=== PATIENT | female | born 1935 | race Two or more races ===

== ENCOUNTER 2019-10-04 17:12 | Inpatient (IN) | payer SELFPAY ==
[~2019-10-04] VITALS: Ht 142.2 cm; Wt 42.2 kg
[~2019-10-04 17:12] MED LIST: AML5T PO; ASP81EC PO; ATOR20TA50 PO; PANT40T PO
[2019-10-04 19:03] LABS: Hemoglobin 11.2 g/dL (12.2-16.2); Lymphocytes # (auto) 2.1 10 ^3/uL (0.4-5.4); Monocytes # (auto) 0.6 10 ^3/uL (0-1.3)
[2019-10-04 19:05] LABS: Basophils # (auto) 0 10 ^3/uL (0-0.2); Basophils % (auto) 0.6 % (0.0-2.0); Eosinophils # (auto) 0.5 10 ^3/uL (0-0.8); Eosinophils % (auto) 6.8 % (0.0-7.0); Hematocrit 33.1 % (36.0-46.0); Lymphocytes % (auto) 27.1 % (10.0-50.0); Mean Corpuscular Hemoglobin 34.7 pg (28.0-32.0); Mean Corpuscular Volume 102.2 fL (80.0-100.0); Monocytes % (auto) 7.9 % (0.0-12.0); Neutrophils # (auto) 4.4 10 ^3/uL (1.6-8.6); Neutrophils % (auto) 57.6 % (37.0-80.0); Platelet Count (auto) 265 10^3/uL (140-450); Red Blood Cells 3.23 10^6/uL (4.0-5.20); Red Cell Distribution Width 13.2 % (11.8-14.3); White Blood Cell 7.6 10^3/uL (4.4-10.8)
[2019-10-04 19:06] LABS: Albumin 2.7 g/dL (3.4-5.0); Anion Gap 6 (5-15); Blood Urea Nitrogen 42 mg/dL (7-18); Carbon Dioxide 21 mmol/L (21-32); Chloride 113 mmol/L (98-107); Glucose 175 mg/dL (74-106); Potassium 4.7 mmol/L (3.5-5.1); Sodium 140 mmol/L (136-145)
[2019-10-04 19:11] LABS: Alanine Aminotransferase 19 U/L (13-56); Alkaline Phosphatase 151 U/L (45-117); Aspartate Aminotransferase 21 U/L (15-37); BUN/Creatinine Ratio 14.9; Bilirubin, Total 0.2 mg/dL (0.2-1.0); GFR African American 21 mL/min; GFR Non-African American 17 mL/min; Total Protein 6.4 g/dL (6.4-8.2)
[2019-10-04] MEDS ORDERED: cloNIDine HCL 0.1 MG TAB PO ONE (20:00)
[2019-10-04] MEDS ORDERED: ONDANSETRON HCL 4 MG/2 ML VIAL IV PRN (21:30)
[2019-10-04] MEDS ORDERED: SODIUM CHLORIDE 0.9% 500 ML IV ONE (21:30)
[2019-10-04] MEDS ORDERED: ACETAMINOPHEN 325 MG TAB PO PRN (21:30)
[2019-10-04] MEDS ORDERED: cloNIDine HCL 0.1 MG TAB PO PRN (21:30)
[2019-10-04] MEDS ORDERED: TEMAZEPAM 15 MG CAP PO PRN (21:30)
[2019-10-04] MEDS: SODIUM CHLORIDE 0.9% 1,000 ML IV SCH (22:28)
[2019-10-04] MEDS: ATORVASTATIN 20 MG TAB PO SCH (22:29)
[2019-10-04 23:00] VITALS: BP 135/56
[2019-10-05] VITALS (7 sets, daily range): BP systolic 124–199; BP diastolic 47–84
[2019-10-05] MEDS ORDERED: PNEUMOCOCCAL VACC POLYS 25 MCG/0.5 ML VIAL IM ONE (00:15)
[2019-10-05] MEDS ORDERED: INFLUENZA QUAD 2019-2020 0.5ml SYRG IM ONE (00:15)
[2019-10-05 05:11] LABS: Basophils # (auto) 0 10 ^3/uL (0-0.2); Basophils % (auto) 0.7 % (0.0-2.0); Eosinophils # (auto) 0.4 10 ^3/uL (0-0.8); Eosinophils % (auto) 6.1 % (0.0-7.0); Hemoglobin 10.6 g/dL (12.2-16.2); Lymphocytes # (auto) 2.4 10 ^3/uL (0.4-5.4); Lymphocytes % (auto) 34.1 % (10.0-50.0); Mean Corpuscular Hemoglobin 33.7 pg (28.0-32.0); Mean Corpuscular Hgb Conc. 33.2 g/dL (32.0-36.0); Mean Corpuscular Volume 101.4 fL (80.0-100.0); Monocytes # (auto) 0.6 10 ^3/uL (0-1.3); Monocytes % (auto) 8.4 % (0.0-12.0); Neutrophils # (auto) 3.5 10 ^3/uL (1.6-8.6); Neutrophils % (auto) 50.7 % (37.0-80.0); Platelet Count (auto) 231 10^3/uL (140-450); Red Blood Cells 3.16 10^6/uL (4.0-5.20); Red Cell Distribution Width 12.7 % (11.8-14.3); White Blood Cell 6.9 10^3/uL (4.4-10.8)
[2019-10-05 05:31] LABS: Potassium 4.8 mmol/L (3.5-5.1)
[2019-10-05 05:36] LABS: BUN/Creatinine Ratio 17.8; Calcium 7.9 mg/dL (8.5-10.1)
[2019-10-05] MEDS ORDERED: PANTOPRAZOLE 40 MG TAB PO SCH (10:00)
[2019-10-05] MEDS: PANTOPRAZOLE 40 MG TAB PO SCH (10:19)
[2019-10-05] MEDS: amLODIPine BESYLATE 5 MG TAB PO SCH (10:19)
[2019-10-05] MEDS ORDERED: MECL25TA18 PO (13:42)
[2019-10-05] MEDS ORDERED: MECLIZINE HCL 25 MG TAB PO PRN (14:00)
[2019-10-05] MEDS ORDERED: cloNIDine HCL 0.1 MG TAB PO PRN (14:00)
[2019-10-05] MEDS: SODIUM CHLORIDE 0.9% 1,000 ML IV SCH (14:10)
[2019-10-05 17:46] LABS: Urine Bacteria MANY /hpf (None Seen); Urine Blood 2+ /uL (Negative); Urine Specific Gravity 1.014 (1.001-1.035); Urine WBC 41 /hpf (0 - 5)
[2019-10-05] MEDS: Glucerna Carbsteady SHAKE Vanilla 8oz PO SCH (18:18)
[2019-10-05] MEDS: ATORVASTATIN 20 MG TAB PO SCH (21:09)
[2019-10-06 05:00] VITALS: BP 158/68
[2019-10-06 05:22] LABS: Basophils # (auto) 0 10 ^3/uL (0-0.2); Basophils % (auto) 0.5 % (0.0-2.0); Eosinophils # (auto) 0.5 10 ^3/uL (0-0.8); Eosinophils % (auto) 7.2 % (0.0-7.0); Hematocrit 32.2 % (36.0-46.0); Hemoglobin 10.8 g/dL (12.2-16.2); Lymphocytes # (auto) 1.9 10 ^3/uL (0.4-5.4); Lymphocytes % (auto) 28.4 % (10.0-50.0); Mean Corpuscular Hemoglobin 33.8 pg (28.0-32.0); Mean Corpuscular Hgb Conc. 33.5 g/dL (32.0-36.0); Mean Corpuscular Volume 100.8 fL (80.0-100.0); Monocytes # (auto) 0.4 10 ^3/uL (0-1.3); Monocytes % (auto) 6.6 % (0.0-12.0); Neutrophils # (auto) 3.9 10 ^3/uL (1.6-8.6); Neutrophils % (auto) 57.3 % (37.0-80.0); Platelet Count (auto) 237 10^3/uL (140-450); Red Cell Distribution Width 12.9 % (11.8-14.3); White Blood Cell 6.8 10^3/uL (4.4-10.8)
[2019-10-06 05:49] LABS: Calcium 7.9 mg/dL (8.5-10.1); Potassium 4.8 mmol/L (3.5-5.1)
[2019-10-06 05:51] LABS: BUN/Creatinine Ratio 16.7
[2019-10-06] MEDS: SODIUM CHLORIDE 0.9% 1,000 ML IV SCH (06:55)
[2019-10-06 09:20] VITALS: BP 148/70
[2019-10-06] MEDS: amLODIPine BESYLATE 5 MG TAB PO SCH (10:31)
[2019-10-06] MEDS: Glucerna Carbsteady SHAKE Vanilla 8oz PO SCH ×3 (10:31→18:17)
[2019-10-06] MEDS: PANTOPRAZOLE 40 MG TAB PO SCH (10:31)
[2019-10-06 12:49] VITALS: BP 156/73
[2019-10-06] MEDS ORDERED: cefTRIAXone 1GM/50ML D5W 50 ML IV ONE (13:45)
[2019-10-06] MEDS: cloNIDine HCL 0.1 MG TAB PO SCH ×2 (13:51→21:59)
[2019-10-06 17:33] VITALS: BP 149/66
[2019-10-06 20:00] VITALS: BP 200/71
[2019-10-06] MEDS: ATORVASTATIN 20 MG TAB PO SCH (21:58)
[2019-10-06 22:00] VITALS: BP 200/71
[2019-10-07] VITALS (7 sets, daily range): BP systolic 120–159; BP diastolic 38–67
[2019-10-07 06:11] LABS: Calcium 7.9 mg/dL (8.5-10.1); Potassium 4.8 mmol/L (3.5-5.1)
[2019-10-07 06:13] LABS: BUN/Creatinine Ratio 19.5
[2019-10-07 09:50] LABS: Magnesium 1.8 mg/dL (1.6-2.6); Phosphorus 3.8 mg/dL (2.5-4.90)
[2019-10-07] MEDS: cloNIDine HCL 0.1 MG TAB PO SCH ×2 (09:52→22:00)
[2019-10-07] MEDS: cefTRIAXone 1GM/50ML D5W 50 ML IV SCH (09:52)
[2019-10-07] MEDS: PANTOPRAZOLE 40 MG TAB PO SCH (09:53)
[2019-10-07] MEDS: amLODIPine BESYLATE 5 MG TAB PO SCH (09:53)
[2019-10-07] MEDS: Glucerna Carbsteady SHAKE Vanilla 8oz PO SCH ×3 (09:53→18:42)
[2019-10-07] MEDS: SODIUM CHLORIDE 0.9% 1,000 ML IV SCH (11:17)
[2019-10-07 14:39] LABS: Protein, Urine 257.7 mg/dL (0.0-11.9)
[2019-10-07] MEDS: ATORVASTATIN 20 MG TAB PO SCH (22:09)
[2019-10-08] VITALS (7 sets, daily range): BP systolic 115–146; BP diastolic 47–69
[2019-10-08] MEDS: SODIUM CHLORIDE 0.9% 1,000 ML IV SCH (06:49)
[2019-10-08 07:58] LABS: Eosinophils # (auto) 0.5 10 ^3/uL (0-0.8); Monocytes # (auto) 0.6 10 ^3/uL (0-1.3); Platelet Count (auto) 219 10^3/uL (140-450); Red Blood Cells 2.84 10^6/uL (4.0-5.20); Red Cell Distribution Width 12.4 % (11.8-14.3)
[2019-10-08 08:00] LABS: Basophils # (auto) 0 10 ^3/uL (0-0.2); Basophils % (auto) 0.5 % (0.0-2.0); Hematocrit 28.5 % (36.0-46.0); Hemoglobin 9.7 g/dL (12.2-16.2); Lymphocytes % (auto) 25.5 % (10.0-50.0); Mean Corpuscular Hemoglobin 34.1 pg (28.0-32.0); Mean Corpuscular Volume 100.3 fL (80.0-100.0); Monocytes % (auto) 7.4 % (0.0-12.0); Neutrophils # (auto) 4.8 10 ^3/uL (1.6-8.6); Neutrophils % (auto) 60.6 % (37.0-80.0); Nucleated Red Blood Cells % 0.1 %; White Blood Cell 7.9 10^3/uL (4.4-10.8)
[2019-10-08 08:17] LABS: BUN/Creatinine Ratio 19.5; Calcium 7.9 mg/dL (8.5-10.1); Potassium 5.1 mmol/L (3.5-5.1)
[2019-10-08] MEDS: cefTRIAXone 1GM/50ML D5W 50 ML IV SCH (09:13)
[2019-10-08] MEDS: cloNIDine HCL 0.1 MG TAB PO SCH ×2 (09:13→21:25)
[2019-10-08] MEDS: Glucerna Carbsteady SHAKE Vanilla 8oz PO SCH ×3 (09:13→17:24)
[2019-10-08] MEDS: PANTOPRAZOLE 40 MG TAB PO SCH (09:14)
[2019-10-08] MEDS: amLODIPine BESYLATE 5 MG TAB PO SCH (09:14)
[2019-10-08] MEDS ORDERED: FUROSEMIDE 40 MG/4 ML VIAL IV ONE (10:15)
[2019-10-08] MEDS ORDERED: CHOLECALCIFEROL (VITD3) 1,000IU=25mCg TAB PO ONE (11:15)
[2019-10-08] MEDS: SODIUM BICARBONATE 650 MG TAB PO SCH ×4 (11:28→21:25)
[2019-10-08] MEDS ORDERED: PANTOPRAZOLE 40 MG/10 ML VIAL INJ IV ONE (11:45)
[2019-10-08 13:05] LABS: Basophils # (auto) 0 10 ^3/uL (0-0.2); Eosinophils # (auto) 0.5 10 ^3/uL (0-0.8); Red Cell Distribution Width 12.5 % (11.8-14.3)
[2019-10-08 13:07] LABS: Basophils % (auto) 0.4 % (0.0-2.0); Eosinophils % (auto) 5.5 % (0.0-7.0); Hemoglobin 9.8 g/dL (12.2-16.2); Lymphocytes # (auto) 1.5 10 ^3/uL (0.4-5.4); Lymphocytes % (auto) 17.7 % (10.0-50.0); Mean Corpuscular Hemoglobin 34.3 pg (28.0-32.0); Mean Corpuscular Hgb Conc. 33.8 g/dL (32.0-36.0); Mean Corpuscular Volume 101.4 fL (80.0-100.0); Monocytes # (auto) 0.6 10 ^3/uL (0-1.3); Monocytes % (auto) 6.9 % (0.0-12.0); Neutrophils # (auto) 5.8 10 ^3/uL (1.6-8.6); Neutrophils % (auto) 69.5 % (37.0-80.0); Platelet Count (auto) 218 10^3/uL (140-450); Red Blood Cells 2.86 10^6/uL (4.0-5.20); White Blood Cell 8.3 10^3/uL (4.4-10.8)
[2019-10-08] MEDS: ATORVASTATIN 20 MG TAB PO SCH (21:26)
[2019-10-09 05:00] VITALS: BP 128/54
[2019-10-09 05:34] LABS: Basophils # (auto) 0 10 ^3/uL (0-0.2); Lymphocytes # (auto) 2.1 10 ^3/uL (0.4-5.4); Monocytes # (auto) 0.6 10 ^3/uL (0-1.3); Red Cell Distribution Width 12.3 % (11.8-14.3)
[2019-10-09 05:36] LABS: Basophils % (auto) 0.5 % (0.0-2.0); Eosinophils # (auto) 0.5 10 ^3/uL (0-0.8); Eosinophils % (auto) 6.1 % (0.0-7.0); Hematocrit 28.8 % (36.0-46.0); Hemoglobin 9.9 g/dL (12.2-16.2); Lymphocytes % (auto) 24.4 % (10.0-50.0); Mean Corpuscular Hemoglobin 34.6 pg (28.0-32.0); Mean Corpuscular Hgb Conc. 34.5 g/dL (32.0-36.0); Mean Corpuscular Volume 100.3 fL (80.0-100.0); Monocytes % (auto) 7.4 % (0.0-12.0); Neutrophils # (auto) 5.3 10 ^3/uL (1.6-8.6); Neutrophils % (auto) 61.6 % (37.0-80.0); Platelet Count (auto) 222 10^3/uL (140-450); Red Blood Cells 2.87 10^6/uL (4.0-5.20); White Blood Cell 8.6 10^3/uL (4.4-10.8)
[2019-10-09 05:51] LABS: Calcium 8.2 mg/dL (8.5-10.1); Potassium 5.2 mmol/L (3.5-5.1)
[2019-10-09 05:54] LABS: BUN/Creatinine Ratio 18.4
[2019-10-09] MEDS: SODIUM BICARBONATE 650 MG TAB PO SCH ×4 (05:54→23:57)
[2019-10-09 06:00] VITALS: BP 148/53
[2019-10-09] MEDS: Glucerna Carbsteady SHAKE Vanilla 8oz PO SCH ×3 (08:00→18:00)
[2019-10-09] MEDS: cefTRIAXone 1GM/50ML D5W 50 ML IV SCH (09:16)
[2019-10-09] MEDS: PANTOPRAZOLE 40 MG/10 ML VIAL INJ IV SCH (09:17)
[2019-10-09] MEDS: amLODIPine BESYLATE 5 MG TAB PO SCH (09:17)
[2019-10-09] MEDS: cloNIDine HCL 0.1 MG TAB PO SCH ×2 (09:18→23:58)
[2019-10-09] MEDS: CHOLECALCIFEROL (VITD3) 1,000IU=25mCg TAB PO SCH (09:18)
[2019-10-09] MEDS ORDERED: DEXTROSE (50%) 50ML SYRG IV ONE (09:30)
[2019-10-09] MEDS ORDERED: InsuLIN REG 1unit/0.01ml Soln (100units/ml) IV ONE (09:30)
[2019-10-09] MEDS ORDERED: ALBUTEROL SULF 2.5 MG/0.5ML(0.5%) NEB SOLN NEB ONE (09:30)
[2019-10-09] MEDS ORDERED: SODIUM BICARBONATE 8.4% INJ 50ML SYRINGE IV ONE (09:30)
[2019-10-09 12:29] VITALS: BP 126/53
[2019-10-09] MEDS: SODIUM ZIRCONIUM CYCL 10 GM PAK PO SCH ×2 (14:00→22:00)
[2019-10-09 17:29] VITALS: BP 118/45
[2019-10-09] MEDS: ATORVASTATIN 20 MG TAB PO SCH (23:57)
[2019-10-10] MEDS: SODIUM ZIRCONIUM CYCL 10 GM PAK PO SCH (05:25)
[2019-10-10 05:42] LABS: Basophils # (auto) 0 10 ^3/uL (0-0.2); Basophils % (auto) 0.3 % (0.0-2.0); Eosinophils # (auto) 0.3 10 ^3/uL (0-0.8); Lymphocytes # (auto) 2.3 10 ^3/uL (0.4-5.4); Lymphocytes % (auto) 24.1 % (10.0-50.0); Monocytes # (auto) 0.9 10 ^3/uL (0-1.3); Monocytes % (auto) 9.5 % (0.0-12.0); Neutrophils # (auto) 5.9 10 ^3/uL (1.6-8.6); Nucleated Red Blood Cells % 0.1 %; White Blood Cell 9.4 10^3/uL (4.4-10.8)
[2019-10-10 05:44] LABS: Eosinophils % (auto) 3.1 % (0.0-7.0); Hematocrit 25.2 % (36.0-46.0); Hemoglobin 8.6 g/dL (12.2-16.2); Mean Corpuscular Hemoglobin 34.1 pg (28.0-32.0); Mean Corpuscular Hgb Conc. 34.1 g/dL (32.0-36.0); Platelet Count (auto) 212 10^3/uL (140-450); Red Blood Cells 2.52 10^6/uL (4.0-5.20); Red Cell Distribution Width 12.6 % (11.8-14.3)
[2019-10-10 05:47] VITALS: BP 124/46
[2019-10-10 06:03] LABS: BUN/Creatinine Ratio 16.9; Calcium 7.9 mg/dL (8.5-10.1)
[2019-10-10] MEDS: SODIUM BICARBONATE 650 MG TAB PO SCH ×2 (06:33→11:40)
[2019-10-10] MEDS: Glucerna Carbsteady SHAKE Vanilla 8oz PO SCH ×2 (08:00→11:40)
[2019-10-10 08:52] VITALS: BP 120/47
[2019-10-10] MEDS: PANTOPRAZOLE 40 MG/10 ML VIAL INJ IV SCH (09:05)
[2019-10-10] MEDS: cefTRIAXone 1GM/50ML D5W 50 ML IV SCH (09:05)
[2019-10-10] MEDS: cloNIDine HCL 0.1 MG TAB PO SCH (09:05)
[2019-10-10] MEDS: CHOLECALCIFEROL (VITD3) 1,000IU=25mCg TAB PO SCH (09:06)
[2019-10-10] MEDS: amLODIPine BESYLATE 5 MG TAB PO SCH (09:06)
[2019-10-10 13:00] VITALS: BP 104/42
== END 2019-10-10 13:30 | disposition home or self-care (01) | DRG 194 ==
LOC: ER 17:12 → OVERFLOW 17:13 → CENTRAL 23:31
PROVIDERS: ADMIT Nurse Practitioner; ATTEND Internal Medicine
DX: I13.2 Hypertensive heart and chronic kidney disease with heart failure and with stage 5 chronic kidney disease, or end stage renal disease (principal); N17.0 Acute kidney failure with tubular necrosis; E86.0 Dehydration; E44.0 Moderate protein-calorie malnutrition; E11.22 Type 2 diabetes mellitus with diabetic chronic kidney disease; N18.6 End stage renal disease; I50.32 Chronic diastolic (congestive) heart failure; N39.0 Urinary tract infection, site not specified; E78.5 Hyperlipidemia, unspecified; H83.09 Labyrinthitis, unspecified ear; E78.00 Pure hypercholesterolemia, unspecified; I16.0 Hypertensive urgency; Z51.5 Encounter for palliative care; E11.65 Type 2 diabetes mellitus with hyperglycemia; D63.8 Anemia in other chronic diseases classified elsewhere; Z83.3 Family history of diabetes mellitus; Z79.82 Long term (current) use of aspirin; Z91.14 Patient's other noncompliance with medication regimen; Z91.19 Patient's noncompliance with other medical treatment and regimen; Z79.899 Other long term (current) drug therapy; Z90.49 Acquired absence of other specified parts of digestive tract; Z86.19 Personal history of other infectious and parasitic diseases; Z68.20 Body mass index [BMI] 20.0-20.9, adult
CPT/HCPCS: 36415; 70450; 71045; 76775; 80048; 80053; 81001; 82306; 82550; 82570; 83036; 83735; 83970; 84100; 84156; 84300; 84443; 84484; 84550; 85025; 87086; 93005; 93306; 94640; 96360; 96361; C9113; G0378; J0696; J1815